=== PATIENT | male | born 1955 | race Caucasian/White ===

== ENCOUNTER 2021-06-13 06:12 | Day surgery (SDC) | payer OTHER ==
[2021-06-12 11:37] LABS: Potassium 4.3 mmol/L (3.5-5.1)
[2021-06-12 11:46] LABS: Absolute Lymphocytes (CBC) 1.2 K/uL (0.7-4.9); Lymphocytes % 33.3 % (15.3-44.8); MPV 7.7 fL (7.6-11.3)
[2021-06-13] MEDS ORDERED: Ringers Lactate 1,000 ML IV ONE (06:27)
[2021-06-13 06:48] VITALS: O2SAT 100
[2021-06-13] MEDS ORDERED: FENTANYL CITR 100 MCG/2 ML ONE (07:07)
[2021-06-13] MEDS ORDERED: LIDOCAINE 2% MPF 5 ML VIAL ONE (07:07)
[2021-06-13] MEDS ORDERED: propofoL 200 MG/20 ML VIAL IV ONE (07:07)
[2021-06-13] MEDS ORDERED: MIDAZOLAM HCL 2 MG/2 ML INJ ONE (07:07)
[2021-06-13] MEDS ORDERED: ONDANSETRON 4 MG/2 ML VIAL ONE (07:08)
[2021-06-13] MEDS ORDERED: GLYCOPYRROLATE 0.2 MG/ML SYR ONE (07:36)
[2021-06-13] MEDS ORDERED: dexAMETHasone 10 MG/ML VIAL ONE (07:52)
[2021-06-13] MEDS: HYDROMORPHONE HCL 1 MG/ML INJ ONE ×2 (08:45→08:50)
[2021-06-13 09:21] VITALS: BP 132/71; TEMP 97
--- NOTE | 2021-06-13 19:18 | OP ---
Date of Procedure: 06/13/2021 Surgeon: Kalyan Talbot MD Preoperative Diagnosis: Right carpal tunnel syndrome. Postoperative Diagnosis: Right carpal tunnel syndrome.. Procedure: Right open carpal tunnel release. Estimated Blood Loss: Less than 3 cc. Complications: There were no complications. Pathology Specimen: No pathology specimen sent. Indications For Operation: Mr. Putnam is a 66-year-old gentleman who came to see me with complaint s of pain and numbness in both hands. He was sent to Neurology, where he was found to have moderate carpal tunnel syndrome bilaterally with involvement of the musculature and the risks, benefits, and a lternatives to carpal tunnel release has been discussed with him. He states he understands things as presented and wishes to proceed with the right side today. Description Of Procedure: The patient was taken to the operating room and placed in supine position. General anesthesia was obtained by staff. Following this, a well-padded tourniquet was placed on s uperior right arm. Right upper extremity was then prepped and draped in the usual sterile fashion fo r procedure. Following this, a standard incision was made parallel to the thenar crease with slight ulnar deviation at the most distal wrist crease. This was taken down carefully through skin. Only m eticulous hemostasis being maintained using bipolar electrocautery. This leads down to the palmar fa scia which was divided longitudinally. Any obstructions over the transverse carpal ligament were the n gently swept to the side. A small grover was made in the transverse carpal ligament, which allowed f or visualization of underlying carpal tunnel structures. This incision then progressed distally unti l there were no constricting bands. It was then progressed from distal to proximal until there were no constricting bands including some degree of volar forearm fascia. The nerve itself appeared to be hyperemic and definitely intact throughout its course. After this, wound was gently irrigated and t he skin was closed using interrupted nylon sutures. The patient was placed in a well-padded sterile dressing, awakened, and taken to recovery room in good condition. No complications. SE/MODL Voice ID: [id number] Report ID: [id number]
== END 2021-06-13 09:42 | disposition home or self-care (01) ==
LOC: OR 06:12
PROVIDERS: ATTEND Orthopaedic Surgery
PROC: 01N50ZZ Release Median Nerve, Open Approach (ICD-10-PCS; principal; 2021-06-13 07:30)
DX: G56.01 Carpal tunnel syndrome, right upper limb (principal); R20.0 Anesthesia of skin; Z20.822 Contact with and (suspected) exposure to COVID-19
CPT/HCPCS: 93005; 85025; 80048; 36415; 64721; U0003; J2704; J2250; J3010; J1100; J1170; J7120; J2405

== ENCOUNTER 2022-01-21 06:13 | Day surgery (SDC) | payer OTHER ==
[2022-01-21] MEDS ORDERED: Ringers Lactate 1,000 ML IV ONE (06:32)
[2022-01-21] MEDS ORDERED: LIDOCAINE 1% MPF 5 ML VIAL ONE (06:51)
[2022-01-21] MEDS ORDERED: propofoL 200 MG/20 ML VIAL IV ONE (06:51)
[2022-01-21] MEDS ORDERED: EPINEPHRINE/PF 1 MG/ML AMP ONE (07:12)
--- NOTE | 2022-01-21 08:05 | ENDO RPT ---
[address], [address] COLONOSCOPY PROCEDURE REPORT EXAM DATE: 01/21/2022 PATIENT NAME: Bill Putnam MR #: [id number] BIRTHDATE: 1955 ATTENDING: Danny Vail MD STATUS: outpatient PIPE COVERER AND INSULATOR: INDICATIONS: The patient is a 66 yr old Male here for a colonoscopy due to personal history of colon polyps and colon cancer screening PROCEDURE PERFORMED: Colonoscopy with biopsy - cold polypectomy MEDICATIONS: Per Anesthesia. ESTIMATED BLOOD LOSS: None CONSENT: The patient understands the risks and benefits of the procedure and understands that these risks include, but are not limited to: sedation, allergic reaction, infection, perforation and/or bleeding. Alternative means of evaluation and treatment include, among others: physical exam, x-rays, and/or surgical intervention. The patient elects to proceed with this endoscopic procedure. DESCRIPTION OF PROCEDURE: During intra-op preparation period all mechanical medical equipment was checked for proper function. Hand hygiene and appropriate measures for infection prevention was taken. Procedure, possible complications, alternatives including, but not limited to possibility of bleeding, perforation, tear, infection, sepsis, need for surgery, need for blood transfusion, were explained to the patient. After the risks, benefits and alternatives of the procedure were thoroughly explained, Informed consent was verified, confirmed and timeout was successfully executed by the treatment team. The patient was placed in the left lateral position. A digital rectal exam was performed and revealed external hemorrhoids. After appropriate level of anesthesia, the scope was passed. The EC-3890Li ([id number]) endoscope was introduced through the anus and advanced to the cecum, which was identified by transillumination from the light source, the appendix, and the ileocecal valve. The instrument was then slowly withdrawn as the colon was fully examined. Scope withdrawal time was . COLON FINDINGS: Multiple sessile polyps were found in the proximal ascending colon AND AT APPROXIMATELY 60CM FROM ANAL VERGE.. Retroflexed views revealed no abnormalities. The scope was then completely withdrawn from the patient and the procedure terminated. ADVERSE EVENTS: There were no complications. IMPRESSIONS: 1. Multiple sessile polyps ranging between 3-5mm in size were found in the proximal ascending colon; polypectomy was performed in a piecemeal fashion using hot forceps 2. External hemorrhoids 3. Internal hemorrhoids RECOMMENDATIONS: 1. await biopsy results 2. follow-up: office 1 week(s) RECALL: for Colonoscopy, pending biopsy results. Danny Vail MD eSigned: Danny Vail MD 01/21/2022 8:05 AM cc: Emil Stinson M.D. CPT CODES: ICD9 CODES: PATIENT NAME: Bill Putnam MR#: [id number]
[2022-01-21 08:20] VITALS: O2SAT 100
[2022-01-21 08:29] VITALS: BP 126/59; TEMP 97.3
== END 2022-01-21 08:37 | disposition home or self-care (01) ==
LOC: OR 06:13
PROVIDERS: ATTEND Surgery
PROC: 0DBK8ZX Excision of Ascending Colon, Via Natural or Artificial Opening Endoscopic, Diagnostic (ICD-10-PCS; principal; 2022-01-21 07:30)
DX: D12.2 Benign neoplasm of ascending colon (principal); K62.5 Hemorrhage of anus and rectum; R19.4 Change in bowel habit; Z86.010 Personal history of colon polyps; K64.8 Other hemorrhoids; K64.4 Residual hemorrhoidal skin tags
CPT/HCPCS: 88305 ×2; 45380; J2704; J0171; J2001; J7120

== ENCOUNTER 2024-08-08 06:16 | Day surgery (SDC) | payer OTHER ==
[2024-08-01 09:14] LABS: Absolute Eosinophils 0.2 K/uL (0-0.5); Absolute Lymphocytes (CBC) 1.4 K/uL (0.7-4.9); Absolute Monocytes 0.3 K/uL (0.1-1.3); Absolute Neutrophil 2.5 K/uL (1.8-8.0); Basophils % 0.6 % (0-1.3); Eosinophils % 3.9 % (0-4.4); Hemoglobin 13.2 g/dL (13.6-17.9); Lymphocytes % 32.3 % (15.3-44.8); MCH 31.1 pg (27.0-35.0); MCHC 34.9 g/dL (32.0-36.0); MCV 89.1 fL (80-100); MPV 7.2 fL (7.6-11.3); Neutrophils % 56.2 % (41.7-73.7); Nucleated Red Blood Cells % 0.2 % (0-0); Platelets 181 thou/uL (152-406); RBC Red Blood Cell Count 4.26 M/uL (4.33-5.43); Red Cell Distribution Width 13.6 % (12.1-15.2)
[2024-08-01 09:18] LABS: PT Prothrombin Time 11.1 SECONDS (10-13.0); Protime INR 0.97
[2024-08-01 09:51] LABS: Anion Gap 4.1 mEq/L (5.0-15.0); Potassium 4.1 mEq/L (3.5-5.1)
--- NOTE | 2024-08-01 10:48 | RAD REPORT ---
EXAMINATION: TWO VIEW CHEST XR CLINICAL INDICATION: Male, 69 years old. [facility] Pre-op pending urolift, foreign body removal TECHNIQUE: 2 view radiographs of the chest were performed. COMPARISON: 10/26/2023 FINDINGS: The lungs are well inflated and clear. No pneumothorax or sizable effusion. The heart is normal in si ze. Mediastinal contours are unremarkable. IMPRESSION: No acute or significant abnormalities.
--- NOTE | 2024-08-01 10:54 | EKG ---
Test Date: 2024-08-01 Test Time: 08:55:33 Behaviorist: EVERETTE MEASUREMENT RESULTS: Intervals: Rate: 49 WV: 208 QRSD: 88 QT: 442 QTc: 399 Foster: P: 16 WV: 208 QRS: -19 T: 39 INTERPRETIVE STATEMENTS: Marked sinus bradycardia Abnormal ECG Compared to ECG 10/26/2023 11:09:30 Left-axis deviation no longer present Electronically Signed On 08-01-24 10:53:25 CDT by Elias Olson
[2024-08-08] MEDS: Ringers Lactate 1,000 ML IV ONE (06:45)
[2024-08-08] MEDS ORDERED: ONDANSETRON 4 MG/2 ML VIAL ONE (07:17)
[2024-08-08] MEDS ORDERED: propofoL 200 MG/20 ML VIAL IV ONE (07:17)
[2024-08-08] MEDS ORDERED: FENTANYL CITR 100 MCG/2 ML ONE (07:17)
[2024-08-08] MEDS ORDERED: MIDAZOLAM HCL 2 MG/2 ML INJ ONE (07:17)
[2024-08-08] MEDS ORDERED: LIDOCAINE 1% MPF 5 ML VIAL ONE (07:19)
[2024-08-08] MEDS: CEFAZOLIN SODIUM 2 GM/VIAL ONE (07:30)
[2024-08-08] MEDS ORDERED: GLYCOPYRROLATE 0.2 MG/ML SYR ONE (07:48)
[2024-08-08] MEDS ORDERED: EPHEDRINE SULF 50 MG/ML VIAL ONE (07:48)
[2024-08-08] MEDS ORDERED: PHENAZOPYRIDINE 100MG TAB PO ONE (09:11)
[2024-08-08] MEDS ORDERED: CODEINE 30MG/APAP 300MG TAB PO PRN (09:11)
--- NOTE | 2024-08-08 10:42 | P.OP ---
Date of Service: 08/08/24 Preoperative diagnoses: BPH with LUTS Intraurethral foreign body History of UroLift Postoperative diagnoses: BPH with LUTS Intraurethral foreign body History of UroLift Principal procedures: Cystoscopy with removal of 3 foreign bodies Prostatic urethral lift/UroLift with 6 implants placed - TWO UL2 ATC devices and FOUR standard UL2 devices implanted successfully Indication for procedure: The patient presented to the urology clinic with obstructive LUTS due to BPH. He underwent UroLift with development of a continuous anterior channel, but on follow-up, he had persistent irritative LUTS and was found to have 1 component of an implant intruding into the prostatic urethral lumen at the apex on the right. Additionally, there was a component of an implant at the left anterior bladder neck that was visible submucosally but not intravesical. He was counseled on the recommendation to remove the intraurethral foreign body and undergo repeat UroLift to manage any residual obstruction visible. Procedure note: The patient was consented in the preoperative holding area before being transferred to the operative suite where general anesthesia was induced. He was given Ancef 2 g IV antimicrobial prophylaxis, and pneumoboots were provided for DVT prophylaxis. He was placed in the lithotomy position, padded and secured to the table appropriately. His genitalia was prepped with Hibiclens and he was draped in standard fashion. The case was begun using a 22 Congolese rigid cystoscope to traverse the urethra and navigate through the prostatic urethra into his bladder with relative ease. I decompressed the bladder of fluid and urine and surveyed in its entirety using both a 30 degree and a 70 degree lens. As previously observed in the office, there was the presence of submucosal implant, likely capsular tab but potentially urethral end piece that was not intravesically intruding but was bulging beneath the mucosa. Within the apex of the prostate on the right, was a metal piece consistent with what appeared to be a capsular tab. As a result, I utilized a rigid biopsy forceps to grasp and remove the metal object emanating from his right apex. I then identified the well implanted implants at the left bladder neck region and attempted to remove the submucosal bulging implant by grasping the urethral end piece component in that location. Despite removing 2 hand pieces, the suture was so well embedded that the capsular tab that was submucosally bulging did not come out with the urethral end pieces removed. Because it was not actually intruding through the mucosa into the bladder lumen, I did not feel that it was worthwhile to actually biopsy and resect the mucosa in order to remove it at this time. So I then remove the cystoscope and switched for the 20 Congolese UroLift sheath and a visual obturator in order to perform redo/repeat UroLift of any residual obstructing tissue. Because his tissue was very pillowy in nature and the prior implant urethral in pieces did seem to invaginate deep into the tissue and become buried within the mucosa, it became apparent that using the standard UL 2 device would be an adequately lateralized the tissue, particularly at the bladder neck, in order to open the channel in the fashion desired. As a result, I employed a UL2 ATC device in order to grasp the tissue involving his bladder neck on the left, sweeping into the wings of the device the pillowy tissue that was a defacto median bar and angling the device against the tissue about 15 degrees once I had brought the distal markings of the device several millimeters within the prostatic urethra distal to bladder neck opening. I pulled the trigger once deploying the needle through the substance of the prostate. I compressed the tissue another 15 degrees maximally before pulling the trigger a second time deploying the capsular tab and partially retracting the needle. A third pull of the trigger did tension the suture; so I advanced the scope back toward the midline and 2 to 3 mm toward the bladder neck opening until the white line of the monofilament was centered in the delivery bay. At this point, I pulled the trigger a fourth time deploying the urethral end piece and tailoring the suture. This did beautifully lateralized the tissue at the bladder neck on the left. As a result, I advanced the scope in the UroLift delivery device back into the patient's bladder before switching the spent implant for a new UL2 ATC implant, which I then used on the right side in a contralateral position at the bladder neck. Once this was done, this did beautifully open the bladder neck laterally, but there was some anteroposterior closure noted. As a result, I utilized a standard UL 2 device in a stacked fashion superior laterally on the right side in the region of the bladder neck at around the 11 o'clock position to elevate the tissue in that location. This did so beautifully creating somewhat of a triangular opening at the bladder neck. At this point, I surveyed the channel created using a visual obturator and there was now evident kissing lateral lobar hypertrophy in the mid apical zone of the prostate. So I employed a UL2 device at the level of the verumontanum on the left at the 3 o'clock position successfully before deploying a contralateral right sided apical implant at the level of the verumontanum for a total of 5 implants placed. I surveyed the channel created, and decided that the tissue emanating from the left anterolateral bladder neck as a result of the disto rtions created by the other implants being placed did deserve further management in order to create the continuous anterior channel; so I placed a 6th and final implant in a static position superiorly and laterally to the UL2 ATC device placed at the bladder neck on the left. This did beautifully open the bladder neck symmetrically and create a continuous anterior channel visible from the verumontanum all the way into the bladder neck with the bladder decompressing and nearly empty. Because there was some hematuria from the prostatic urethra, I refilled the bladder with sterile saline and passed a 18 Congolese urethral Paez catheter via his urethra into his bladder with ease. 25 cc of sterile water was placed in the balloon, and the catheter was allowed to decompress before being connected to a leg bag. He was then taken out of the lithotomy position, awakened from general anesthesia, transferred to a stretcher, and then transferred to the recovery room in good condition. Complications: None Discharge disposition: He will be standard UroLift follow-up pathway with follow-up in approximately 1 month's time.
[2024-08-08 11:16] VITALS: BP 113/76; TEMP 97; O2SAT 97
== END 2024-08-08 11:00 | disposition home or self-care (01) ==
LOC: OR 06:16
PROVIDERS: ATTEND Urology
PROC: 0T7D8DZ Dilation of Urethra with Intraluminal Device, Via Natural or Artificial Opening Endoscopic (ICD-10-PCS; 2024-08-08)
PROC: 0TCD8ZZ Extirpation of Matter from Urethra, Via Natural or Artificial Opening Endoscopic (ICD-10-PCS; principal; 2024-08-08 07:30)
DX: N40.1 Benign prostatic hyperplasia with lower urinary tract symptoms (principal); T19.1XXA Foreign body in bladder, initial encounter
CPT/HCPCS: 93005; 87088; 85025; 87086; 80048; 36415; 85610; 71046; 52310; 52441; 52442 ×5; J2704; J2003; J2250; J3010; J2405; J7120